=== PATIENT | female | born 1980 | race Caucasian/White ===

== ENCOUNTER 2016-12-07 18:25 | Emergency (ER) | payer OTHER ==
[2016-12-07] MEDS ORDERED: Ibuprofen TAB* 600 MG PO ONE (20:02)
--- NOTE | 2016-12-07 20:41 | RAD ---
Indication: LEFT ankle and foot pain and unable to bear weight following rolling injury. Comparison: No relevant prior exams available on the [facility] for comparison. Technique: AP, mortise, and lateral views LEFT ankle. AP, lateral, and oblique views LEFT foot. Report: Soft tissue swelling over the lateral malleolus. Lateral anterior soft tissue swelling at the ankle. Normal articular alignment at the ankle and foot. No fracture evident at the ankle or foot. No significant arthropathic change evident. Os peroneum accessory ossicles noted. IMPRESSION: Soft tissue swelling over the lateral malleolus and anterior aspect of the ankle without evidence for fracture or malalignment at the ankle or foot.
--- NOTE | 2016-12-07 20:41 | RAD ---
Indication: LEFT ankle and foot pain and unable to bear weight following rolling injury. Comparison: No relevant prior exams available on the [facility] PACS for comparison. Technique: AP, mortise, and lateral views LEFT ankle. AP, lateral, and oblique views LEFT foot. Report: Soft tissue swelling over the lateral malleolus. Lateral anterior soft tissue swelling at the ankle. Normal articular alignment at the ankle and foot. No fracture evident at the ankle or foot. No significant arthropathic change evident. Os peroneum accessory ossicles noted. IMPRESSION: Soft tissue swelling over the lateral malleolus and anterior aspect of the ankle without evidence for fracture or malalignment at the ankle or foot.
[2016-12-07 21:24] VITALS: BP 160/81
--- NOTE | 2016-12-20 23:56 | ED ---
Phuong Cota Rebecca, scribed for Yakov Vann on 12/07/16 at 2007 . Lower Extremity - HPI Summary HPI Summary: Pt is a 36 y/o F who presents to ED c/o L ankle pain s/p injury. At approximately 1800 today the pt "rolled" her ankle while walking. Pain is discrete to the L ankle and is currently severe, ranked 8/10. Applied an ice pack [employer]. Sx aggravated by movement, alleviated by nothing. Denies any knee or calf pain. - History of Current Complaint Chief Complaint: EDExtremityLower Stated Complaint: LEFT ANKLE INJURY Time Seen by Provider: 12/07/16 19:29 Hx Obtained From: Patient Mechanism Of Injury: Twisted - "rolled" Onset of Pain: Hours, Prior to Arrival Onset/Duration: Still Present Severity Currently: Severe Pain Intensity: 8 Pain Scale Used: 0-10 Numeric Location: Is Discrete @ - L ankle Associated Signs And Symptoms: Positive: Negative Aggravating Factor(s): Movement Alleviating Factor(s): Nothing - Allergies/Home Medications Allergies/Adverse Reactions: Allergies Allergy/AdvReac Type Severity Reaction Status Date / Time Meloxicam [From Mobic] Allergy Severe See Comment Verified 12/07/16 19:05 Acetaminophen [From Vicodin] Allergy Intermediate Vomiting Verified 12/07/16 19: 05 Hydrocodone [From Vicodin] Allergy Intermediate Vomiting Verified 12/07/16 19:05 Fluconazole [From Diflucan] Allergy Rash Verified 12/07/16 19:05 PMH/Surg Hx/FS Hx/Imm Hx Endocrine/Hematology History: Denies: Hx Anticoagulant Therapy, Hx Diabetes, Other Endocrine/Hematological Disorders Comment Only: Hx Anemia - POSSIBLE R/T PROLONGED AND HEAVY MENSES Cardiovascular History: Denies: Hx Congestive Heart Failure, Hx Hypertension, Other Cardiovascular Problems/Disorders Respiratory History: Reports: Hx Sleep Apnea - SLEEP STUDIES DONE, NASAL SURGERY HELPED CORRECT NO NEED FOR CPAP, Other Respiratory Problems/Disorders - CHRONIC SINUS PROBLEMS GI History: Reports: Hx Irritable Bowel - WITH CONSTIPATION ON MEDS Denies: Other GI Disorders History: Reports: Other Problems/Disorders - HX OF EXCESSIVE LONG MENSES WITH HEAVY FLOW R/T ENDOMETROSIS Musculoskeletal History: Reports: Hx Arthritis, Other Musculoskeletal History - rheumatoid arthritis OR PSORIATIC- NO DEFINITE DX YET Sensory History: Reports: Hx Contacts or Glasses - GLASSES Denies: Hx Hearing Aid, Other Sensory Impairments Opthamlomology History: Reports: Hx Contacts or Glasses - GLASSES Denies: Other Sensory Impairments Neurological History: Reports: Hx Headaches, Hx Migraine - A COUPLE TIMES WEEKLY - POSSIBLY SINUS RELATED Denies: Other Neuro Impairments/Disorders Psychiatric History: Denies: Other Psychiatric Issues/Disorders - Cancer History Hx Chemotherapy: Yes - FOR POSSIBLE RHEUMATOID ARTHRITIS- OFF SINCE 02/26/14 - Surgical History Surgery Procedure, Year, and Place: tubal ligation- [facility] [place] [facility] 2005 OR 2007. tonsils- [facility] [place] [facility] 2005 OR 2007. NASAL SURGERY [facility] [place] 2012 Hx Anesthesia Reactions: No Infectious Disease History: No Infectious Disease History: Denies: Traveled Outside the [place] in Last 30 Days - Family History Known Family History: Positive: Cardiac Disease, Other - Bladder CA - Social History Alcohol Use: Occasionally Alcohol Amount: 2 X WEEK Substance Use Type: Reports: None Smoking Status (MU): Never Smoked Tobacco Review of Systems Negative: Fever Positive: Arthralgia - L ankle pain; NEGATIVE: knee or calf pain All Other Systems Reviewed And Are Negative: Yes Physical Exam - Summary Physical Exam Summary: Appearance: Well appearing, no pain distress Skin: warm, dry, reflects adequate perfusion Head/face: normal Eyes: EOMI, QAMAR ENT: normal Neck: supple, nontender Respiratory: CTA, breath sounds present Cardiovascular: RRR, pulses symmetrical Abdomen: nontender, soft Bowel: present Musculoskeletal: Tenderness and swelling over the lateral aspect of the left ankle, no neurovascular deficits, strength/ROM intact Neuro: normal, sensory motor intact, A&Ox3 Triage Information Reviewed: Yes Vital Signs On Initial Exam: Initial Vitals Temp Pulse Resp BP Pulse Ox 97.8 F 80 20 132/70 100 12/07/16 18:30 12/07/16 18:30 12/07/16 18:30 12/07/16 18:30 12/07/16 18:30 Vital Signs Reviewed: Yes - [place] Coma Scale Coma Scale Total: 15 Diagnostics - Vital Signs Vital Signs Temp Pulse Resp BP Pulse Ox 12/07/16 18:30 97.8 F 80 20 132/70 100 - Laboratory Lab Statement: Any lab studies that have been ordered have been reviewed, and results considered in the medical decision making process. - Radiology Foot XR Xray Interpretation: No Acute Changes - Soft tissue swelling over the lateral malleolus and anterior aspect of the ankle without evidence for fracture or malalignment at the ankle or foot. ED physician reviewed radiology report and agrees. Radiology Interpretation Completed By: Radiologist Ankle XR Xray Interpretation: No Acute Changes - Soft tissue swelling over the lateral malleolus and anterior aspect of the ankle without evidence for fracture or malalignment at the ankle or foot. ED physician reviewed radiology report and agrees. Radiology Interpretation Completed By: Radiologist Re-Evaluation - Re-Evaluation First Eval Re-Evaluation Time: 20:59 Comment: Discussed results with the pt. Lower Extremity Course/Dx - Course Assessment/Plan: Pt is a 36 y/o F who presents to ED c/o L ankle pain s/p injury. At approximately 1800 today the pt "rolled" her ankle while walking. Pain is discrete to the L ankle and is currently severe, ranked 8/10. Applied an ice pack [employer]. Sx aggravated by movement, alleviated by nothing. Denies any knee or calf pain. Ankle XR and Foot XR reveal soft tissue swelling with no acute fracture. She will be D/C to home with Dx of ankle sprain, Rx for Motrin and a follow up with her PCP. Elevated BP noted and advised to f/u with PCP. Patient medications reviewed this visit. - Diagnoses Provider Diagnoses: Ankle sprain Discharge - Discharge Plan Condition: Stable Disposition: HOME Prescriptions: Ibuprofen TAB* [Motrin TAB* 600 MG] 600 mg PO Q8H PRN #20 tab MDD 3 PRN Reason: Pain Patient Education Materials: Ankle Sprain (ED) Referrals: Corin Zaman, W[employer]ER [Primary Care Provider] - 3 Days The documentation as recorded by the Phuong castillo Rebecca accurately reflects the service I personally performed and the decisions made by Edwar espinoza Emmanuel.
== END 2016-12-07 21:21 | disposition home or self-care (01) ==
LOC: ED 18:25
DX: S93.402A Sprain of unspecified ligament of left ankle, initial encounter (principal); X50.9XXA Other and unspecified overexertion or strenuous movements or postures, initial encounter; Y93.9 Activity, unspecified; Y92.9 Unspecified place or not applicable
CPT/HCPCS: 99282; A9270-GY

== ENCOUNTER 2019-02-05 05:37 | Observation (INO) | payer OTHER ==
[~2019-02-05 05:37] MED LIST: Buffered Lidocaine 1% SYRIN* 1 ML/SYRINGE INTRADERM ONE
[2019-02-05] MEDS ORDERED: Famotidine IV* 10 MG/ML 2 ML (20 mg) IV ONE (06:00)
[2019-02-05] MEDS ORDERED: Dexamethasone IV* 4 MG/ML 1 ML (4 MG) IV SLOW PU ONE (06:00)
[2019-02-05] MEDS ORDERED: Lactated Ringers 1000 ML Bag* 1,000 ML IV SCH ×2 (06:00→11:00)
[2019-02-05] MEDS ORDERED: ceFOXitin 2 GM IVPREMIX* 2 GM/50 ML BAG ONE (06:15)
[2019-02-05] MEDS ORDERED: Buffered Lidocaine 1% SYRIN* 1 ML/SYRINGE INTRADERM ONE ×2 (06:15→07:08)
[2019-02-05] MEDS ORDERED: Dexamethasone IV* 4 MG/ML 1 ML (4 MG) ONE (06:15)
[2019-02-05] MEDS ORDERED: Famotidine IV* 10 MG/ML 2 ML (20 mg) ONE (06:15)
[2019-02-05 06:48] LABS: Hematocrit 41 % (35-47); Hemoglobin 14.1 g/dL (12.0-16.0); Mean Corpuscular HGB Conc 35 g/dL (31-36); Mean Corpuscular Hemoglobin 32 pg (27-31); Mean Corpuscular Volume 91 fL (80-97); Mean Platelet Volume 8.5 fL (7.4-10.4); Platelet Count 275 10^3/uL (150-450); Red Blood Count 4.44 10^6 /uL (3.70-4.87); Red Cell Distribution Width 14 % (10-15); White Blood Count 5.2 10^3/uL (3.5-10.8)
[2019-02-05] MEDS ORDERED: oxyCODONE TAB* 5 MG TAB PO PRN (07:00)
[2019-02-05] MEDS ORDERED: Naloxone* 0.4 MG/ML 1 ML VIAL IV PRN (07:00)
[2019-02-05] MEDS ORDERED: DiMENhydriNATE IV* 50 MG/ML VIAL IV PUSH PRN (07:00)
[2019-02-05] MEDS ORDERED: fentaNYL* 50 MCG/ML 2 ML VIAL (100 MCG VIAL) IV PRN (07:00)
[2019-02-05] MEDS ORDERED: Ketorolac INJ* 30 MG/ML 1 ML VIAL IV PRN (07:00)
[2019-02-05] MEDS ORDERED: Bupivacaine 0.25% SDV PF* 10 ML VIAL INJ ONE (07:07)
[2019-02-05] MEDS ORDERED: Propofol* 10 MG/ML 20 ML BTL ONE (07:26)
[2019-02-05] MEDS ORDERED: Lidocaine 2% PF * 5 ML VIAL ONE (07:26)
[2019-02-05] MEDS ORDERED: Midazolam* 1 MG/ML 5 ML VIAL (5 MG) ONE (07:26)
[2019-02-05] MEDS ORDERED: Rocuronium* 10 MG/ML VIAL ONE (07:26)
[2019-02-05] MEDS ORDERED: fentaNYL* 50 MCG/ML 2 ML VIAL (100 MCG VIAL) ONE ×2 (07:26→08:53)
[2019-02-05] MEDS ORDERED: Phenylephrine 40 MCG/ML SYRINGE ONE (07:56)
[2019-02-05] MEDS ORDERED: EPHEDrine (Pressors)* 50 MG/ML VIAL ONE (08:04)
[2019-02-05] MEDS ORDERED: Ondansetron INJ* 2 MG/ML VIAL ONE (08:55)
[2019-02-05] MEDS ORDERED: oxyCODONE/Acetamin 5/325 MG* TAB PO PRN ×2 (10:57)
[2019-02-05] MEDS ORDERED: Ondansetron INJ* 2 MG/ML VIAL IV PRN (10:57)
[2019-02-05] MEDS: Ketorolac INJ* 30 MG/ML 1 ML VIAL IV SCH ×2 (11:52→18:15)
--- NOTE | 2019-02-05 15:26 | OP ---
OPERATIVE REPORT: DATE OF OPERATION: 02/05/19 DATE OF : 78 SURGEON: Darlene Aquino MD WEIGH MACHINE OPERATOR: Triston Garcia MD ANESTHESIOLOGIST: Dr. Mcguire. ANESTHESIA: General endotracheal PRE-OP DIAGNOSIS: Abnormal uterine bleeding, status post endometrial ablation. POST-OP DIAGNOSIS: Abnormal uterine bleeding, status post endometrial ablation. OPERATIVE PROCEDURE: Laparoscopic supracervical hysterectomy with bilateral salpingectomy. MATERIALS TO LAB: Uterus and bilateral fallopian tubes. INDICATIONS: This patient is a 38-year-old 2, para 1, who underwent an endometrial ablation for menorrhagia in 2016. The patient did well for the first 1- / to 2 years, but then she started having persistent bleeding which did not improve. Considering her bleeding was prolonged and significantly affecting her quality of life, she desired to have definitive surgery performed with a hysterectomy. She was extensively counseled and consent was signed for a laparoscopic supracervical hysterectomy and bilateral salpingectomy. FINDINGS: Normal-appearing uterus, fallopian tubes, and ovaries. Both fallopian tubes had been previously ligated with cauterization, so the midsection of each fallopian tube was already missing. COMPLICATIONS: None. DESCRIPTION OF PROCEDURE: The risks, benefits, and alternatives were described to the patient and informed consent was obtained. The patient was taken to the operating room with IV running where general anesthesia was induced and found to be adequate. The patient was prepped and draped in the normal sterile fashion in the high lithotomy position in Brennan stirrups with the arms tucked on both sides. A time-out was performed. A Paredes catheter was placed in the bladder. A Hulka tenaculum was then placed on the cervix, although it could not be fully advanced into the uterine cavity due to the ablation. Attention was then turned to the abdomen and gloves were changed. The patient was placed in a low lithotomy position. 0.25% Marcaine was then injected into the umbilicus and several centimeters below the umbilicus. A skin incision was made with the scalpel extending about 4 to 5 cm. The adipose and subcutaneous tissues were dissected down until the fascia could be grasped with a Ben clamp. The fascia was then incised in the midline and this incision was extended about 5 cm. At that time, an Ruiz retractor was placed into the peritoneal cavity and tightened down to the skin with care being taken to avoid trapping any omentum or bowel. A GelPOINT retractor with ports was then placed on this and the abdomen was insufflated with carbon dioxide gas to a maximum pressure of 15 mmHg. The patient was placed in the Trendelenburg position. The bowel was swept out of the pelvis and there was good visualization of the pelvis. The left fallopian tube was grasped at the fimbriated end and the mesosalpinx was coagulated and transected using the LigaSure until the entire tube had been removed. This was then extracted through one of the laparoscope ports. The utero- ovarian ligament was coagulated and transected using the LigaSure. The round ligament was then also taken down using the LigaSure. A bladder flap was then created using the LigaSure extending to the lower uterine segment and across to the patient's right side. The posterior broad ligament was then also opened and the uterine vessels were grasped at multiple sites near the lateral surface of the cervix and coagulated. Attention was then turned to the right side where the fallopian tube was removed as well. The utero-ovarian ligaments , round ligaments, and bladder flap were all taken down in a similar fashion. The uterine vessels were then again identified, coagulated, and transected. At that time, there was no significant bleeding present. A SupraLoop was then placed through one of the ports and used to encircle the entire uterus and the loop was cinched down at the mid to upper portion of the cervix. Using a laparoscopic tenaculum to move the uterus, care was taken to carefully visualize all sides of the loop to ensure that it was not in contact with any surrounding structures or bowel. Once it was in the correct place, the Hulka tenaculum was removed and the uterus was amputated from the cervix with the SupraLoop at 110 pure cut. There was a small amount of bleeding at the surface of the cervix after this was done and this was cauterized using monopolar cautery. The upper end of the cervical canal was also cauterized in a similar fashion. The uterus was then grasped with the tenaculum and the GelPOINT was removed. A tissue extraction bag was then placed into the abdominal cavity and the uterus was pushed into the bag. The edges of the bag were then pulled out through the incision and the uterus was grasped within the bag. It was then morcellated within the bag using Trejo scissors without difficulty. Once the uterus had been completely removed, the bag was taken out. The GelPOINT was replaced and the abdomen was re-insufflated. On careful inspection, there was no visible continued bleeding. A laparoscopic spray device for Tisseel was prepared and then placed into the abdomen. The Tisseel was then sprayed with a fine mist over the entire pelvic operative site. Once this was complete, the GelPOINT and retractor were removed from the abdomen. The fascia was reapproximated using 0 Vicryl in a running stitch. The skin was then closed with 4-0 Monocryl in a subcuticular stitch and this was covered with DermaFlex skin adhesive. The patient was then returned to a supine position and awakened. The patient tolerated the procedure well. Sponge, lap, and needle counts were correct x2. [id number]/[facility] #: [id number] MTDD
[2019-02-05 17:20] LABS: Hematocrit 42 % (35-47); Hemoglobin 14.2 g/dL (12.0-16.0)
[2019-02-05] MEDS: Ibuprofen TAB* 600 MG PO PRN (17:51)
[2019-02-05] MEDS: APREMILAST 30 MG PO SCH (21:18)
[2019-02-05] MEDS: Acetaminophen TAB* 325 MG PO PRN (21:21)
[2019-02-06] MEDS: Acetaminophen TAB* 325 MG PO PRN (03:55)
[2019-02-06] MEDS: Ibuprofen TAB* 600 MG PO PRN ×2 (03:55→10:20)
[2019-02-06 07:23] LABS: ABS Lymphocytes 1.3 10^3/ul (1.0-4.8); ABS Monocytes 0.9 10^3/ul (0-0.8); ABS Neutrophils 13.3 10^3/ul (1.5-7.7); Eosinophil % 0.1 %; Hematocrit 40 % (35-47); Hemoglobin 13.6 g/dL (12.0-16.0); Lymphocyte % 8.2 %; Mean Corpuscular HGB Conc 34 g/dL (31-36); Mean Corpuscular Hemoglobin 31 pg (27-31); Mean Corpuscular Volume 92 fL (80-97); Mean Platelet Volume 8.8 fL (7.4-10.4); Platelet Count 292 10^3/uL (150-450); Red Blood Count 4.32 10^6 /uL (3.70-4.87); Red Cell Distribution Width 14 % (10-15); White Blood Count 15.6 10^3/uL (3.5-10.8)
[2019-02-06] MEDS: APREMILAST 30 MG PO SCH (08:37)
[2019-02-06 11:12] VITALS: BP 113/64
--- NOTE | 2019-02-06 11:55 | DS ---
DISCHARGE SUMMARY: DATE OF ADMISSION: 02/05/19 DATE OF DISCHARGE: 02/06/19 HOSPITAL COURSE: This patient was a 38-year-old woman who presented on the day of admission for a scheduled surgery. On the day of admission, she underwent an uncomplicated laparoscopic supracervical hysterectomy with bilateral salpingectomy for abnormal uterine bleeding. The patient had a history of a prior endometrial ablation about 3 years ago, which had stopped working. The procedure was uncomplicated and the patient did well in the PACU and was transferred to the postoperative byrd. On postoperative day 1, the patient was ambulating, tolerating a regular diet, voiding spontaneously and passing flatus. The patient's pain was well controlled with oral pain medications. She was discharged to home in good condition on postoperative day 1. PHYSICAL EXAMINATION: Vital Signs: Temperature 97.3, heart rate 107, respiratory rate 16, blood pressure 128/64. General: No acute distress, comfortable, lying in bed. Abdomen: Bowel sounds positive. Incision clean, dry, and intact with skin glue in place. LABORATORY DATA: Preoperative hematocrit 41, postoperative hematocrit 40. DISCHARGE INSTRUCTIONS: The patient was provided with verbal and printed discharge instructions. She will return for followup in about 1 week for an incision check and in about 4 weeks for a postoperative exam. DISCHARGE MEDICATIONS: Please see the medication reconciliation in the computer. DISCHARGE DIAGNOSES: Abnormal uterine bleeding and BMI of 42, status post laparoscopic supracervical hysterectomy, bilateral salpingectomy. Discharged to home in good condition. [id number]/[facility] #: [id number] MTDD
== END 2019-02-06 11:50 | disposition home or self-care (01) ==
LOC: OR 05:37 → SSU 10:57
PROVIDERS: ADMIT Obstetrics & Gynecology; ATTEND Obstetrics & Gynecology
DX: N93.9 Abnormal uterine and vaginal bleeding, unspecified (principal); N99.85 Post endometrial ablation syndrome
CPT/HCPCS: 36415; 85014; 85018; 85025; 85027; 86850; 86900; 86901; 88307; 96361; 96374; A9270-GY; C1776; G0378; J0694; J1100; J1885; J2250; J2405; J2704; J3010; J3490